=== PATIENT | male | born 1995 | race Caucasian/White ===

== ENCOUNTER 2017-11-28 23:40 | Emergency (ER) | payer SELFPAY ==
--- NOTE | 2017-11-28 23:42 | ER Report ---
History and Physical Time Seen By MD: 23:42 HPI/ROS CHIEF COMPLAINT: alcohol intoxication, forehead abrasion HISTORY OF PRESENT ILLNESS: This is a 22 year old male. He was intoxicated and was sleeping on a bench in town. He had an injury at some point as there is an abrasion on his left upper forehead. He is waiting for a friend to pick him up, coming from [place]. He denies any other problems. He does not want us to do anything at this time. Allergies: Coded Allergies: No Known Drug Allergies (Unverified , 11/28/17) Home Meds No Active Prescriptions or Reported Meds Reviewed Nurses Notes: Yes Constitutional Vital Sign - Last 24 Hours 11/28/17 23:50 Temp 98.1 Pulse 105 Resp 16 B/P (MAP) 134/85 Pulse Ox 95 O2 Delivery Room Air Physical Exam General Appearance: The patient is alert, has no immediate need for airway protection and no current signs of toxicity. Eyes: Pupils equal and round no injection. ENT: Normal oral mucosa. Moist mucous membranes. Tympanic membranes are normal. Neck: Neck is supple and non tender. Respiratory: Chest is non tender, lungs are clear to auscultation. Cardiac: regular rate and rhythm Musculoskeletal: Extremities have full range of motion. Non tender. Skin: Abrasion left upper forehead. DIFFERENTIAL DIAGNOSIS: After history and physical exam differential diagnosis was considered for alcohol intoxication. Medical Decision Making ED Course/Re-evaluation ED Course Patient's friend arrived and picked him up. Recommended that if having any further problems to seek medical attention. Decision to Disposition Date: November 29, 2017 Decision to Disposition Time: 01:30 Depart Departure Latest Vital Signs Vital Signs Date Time Temp Pulse Resp B/P (MAP) Pulse Ox O2 Delivery O2 Flow Rate FiO2 11/28/17 23:50 98.1 105 16 134/85 95 Room Air Impression: Primary Impression: Alcohol intoxication Additional Impression: Abrasion of forehead Condition: Improved Disposition: HOME OR SELF-CARE New Scripts No Active Prescriptions or Reported Meds Patient Instructions: Abrasion (ED), Alcohol Intoxication (ED) Problem Qualifiers Primary Impression: Alcohol intoxication Complication of substance-induced condition: uncomplicated Qualified Codes: F10.920 - Alcohol use, unspecified with intoxication, uncomplicated Additional Impression: Abrasion of forehead Encounter type: initial encounter Qualified Codes: S00.81XA - Abrasion of other part of head, initial encounter KATHYDILIA MD November 28, 2017 23:42
[2017-11-28 23:50] VITALS: BP 134/85
== END 2017-11-29 01:36 | disposition home or self-care (01) ==
LOC: ER 23:45
DX: F10.920 Alcohol use, unspecified with intoxication, uncomplicated (principal); S00.81XA Abrasion of other part of head, initial encounter
CPT/HCPCS: 99282

== ENCOUNTER → 2017-11-28 | Outpatient (CLI) | payer SELFPAY | LOC: AMB 23:08 | PROVIDERS: ATTEND Nurse Practitioner | DX: S01.81XA Laceration without foreign body of other part of head, initial encounter (principal); F10.120 Alcohol abuse with intoxication, uncomplicated | CPT/HCPCS: A0425; A0429 ==